=== PATIENT | female | born 1955 | race African-American/Black ===

== ENCOUNTER 2016-10-02 15:33 | Emergency (ER) | payer OTHER ==
[~2016-10-02] VITALS: Ht 165.1 cm; Wt 80.7 kg
[2016-10-02] MEDS ORDERED: ANTIVERT25 MG PO (15:59)
[2016-10-02] MEDS ORDERED: FLEXERIL PO (15:59)
[2016-10-02] MEDS ORDERED: LEVOTHYROXIN0.125 M1 PO (15:59)
[2016-10-02] MEDS ORDERED: NUCYNTA50 MG PO (16:00)
[2016-10-02 16:26] VITALS: BP 143/84
[2016-10-02] MEDS ORDERED: IBUPROFEN 600600 M1 PO (16:38)
== END 2016-10-02 16:55 | disposition home or self-care (01) ==
LOC: ER 15:33
DX: S60.212A Contusion of left wrist, initial encounter (principal); E03.9 Hypothyroidism, unspecified; W10.9XXA Fall (on) (from) unspecified stairs and steps, initial encounter; Y93.89 Activity, other specified; Y92.89 Other specified places as the place of occurrence of the external cause; Y99.8 Other external cause status